=== PATIENT | male | born 1950 | race Two or more races ===

== ENCOUNTER 2020-04-02 10:18 | Outpatient (CLI) | payer OTHER | END 2020-04-02 10:20 | disposition home or self-care (01) | LOC: PPH VACUNA 10:18 | PROVIDERS: ATTEND Emergency Medicine Pediatric Emergency Medicine | DX: Z23 Encounter for immunization (principal) ==

== ENCOUNTER → 2020-04-23 07:00 | Outpatient (CLI) | payer OTHER | END | disposition home or self-care (01) | LOC: PPH VACUNA 07:00 | PROVIDERS: ATTEND Emergency Medicine Pediatric Emergency Medicine | DX: Z23 Encounter for immunization (principal) ==

== ENCOUNTER 2020-07-11 11:15 | Inpatient (IN) | payer OTHER ==
[~2020-07-11] VITALS: Ht 172.7 cm; Wt 83.5 kg
[2020-07-11] MEDS ORDERED: COZAAR50 MG PO (15:48)
[2020-07-11] MEDS ORDERED: ATORVASTATIN CA20 MG PO (15:50)
[2020-07-17] MEDS ORDERED: CLOTRIMAZOLE-BE15 G1 (08:12)
[2020-07-20] MEDS ORDERED: HYOSCYAMINE0.125 M1 SL (11:45)
[2020-07-20] MEDS ORDERED: OXYC1TAB9 PO (11:45)
[2020-07-20] MEDS ORDERED: INTESTINEX680 M1 PO (11:45)
== END 2020-07-20 12:54 | disposition home or self-care (01) | DRG 331 ==
LOC: O/R 07-17 06:36 → SURH 07-17 06:36
PROVIDERS: Surgery; ADMIT Surgery; ATTEND Surgery
PROC: 0WQF4ZZ Repair Abdominal Wall, Percutaneous Endoscopic Approach (ICD-10-PCS; 2020-07-17)
PROC: 0DJD8ZZ Inspection of Lower Intestinal Tract, Via Natural or Artificial Opening Endoscopic (ICD-10-PCS; 2020-07-17)
PROC: 0DTP4ZZ Resection of Rectum, Percutaneous Endoscopic Approach (ICD-10-PCS; principal; 2020-07-17 07:00)
PROC: 0DBN4ZZ Excision of Sigmoid Colon, Percutaneous Endoscopic Approach (ICD-10-PCS; 2020-07-17 07:00)
DX: Z43.3 Encounter for attention to colostomy (principal); K66.0 Peritoneal adhesions (postprocedural) (postinfection); K43.9 Ventral hernia without obstruction or gangrene; K43.5 Parastomal hernia without obstruction or gangrene; K57.30 Diverticulosis of large intestine without perforation or abscess without bleeding